=== PATIENT | female | born 1950 | race Caucasian/White ===

== ENCOUNTER 2020-10-02 18:02 | Emergency (ER) | payer SELFPAY ==
[~2020-10-02] VITALS: Ht 165.1 cm; Wt 40.8 kg
[2020-10-02] MEDS ORDERED: DIAZ5 (18:29)
[2020-10-02] MEDS ORDERED: NADO20 PO (18:30)
[2020-10-02] MEDS ORDERED: OXYC5 (18:30)
[2020-10-02 19:13] LABS: BASOPHILS ABSOLUTE AUTO 0.04 K/mm3 (0.00-0.23); BASOPHILS PERCENT AUTO 0 % (0-2); EOSINOPHILS ABSOLUTE AUTO 0.14 K/mm3 (0.00-0.68); EOSINOPHILS PERCENT AUTO 1 % (0-6); Hematocrit 29.5 % (33.0-51.0); IMMATURE GRAN ABSOLUTE AUTO 0.02 K/mm3 (0.00-0.10); IMMATURE GRAN PERCENT AUTO 0 % (0-1); LYMPHOCYTES ABSOLUTE AUTO 2.32 K/mm3 (0.84-5.20); LYMPHOCYTES PERCENT AUTO 24 % (21-46); MONOCYTES ABSOLUTE AUTO 0.89 K/mm3 (0.16-1.47); MONOCYTES PERCENT AUTO 9 % (4-13); Mean Corpuscular HGB Conc 30.5 g/dL (31.5-36.5); Mean Corpuscular Volume 92 fL (80-100); Mean Platelet Volume 9.6 fL (9.1-12.4); NEUTROPHILS ABSOLUTE AUTO 6.43 K/mm3 (1.96-9.15); NEUTROPHILS PERCENT AUTO 65 % (41-73); Platelet Count 310 K/mm3 (150-400); RDW Coefficient Variation 15.1 % (11.7-14.2); RDW Standard Deviation 50.5 fL (35.1-46.3); Red Blood Cell Count 3.22 M/mm3 (3.80-5.20); White Blood Cell Count 9.84 K/mm3 (4.00-11.30)
[2020-10-02 19:29] LABS: Anion Gap 3 mmol/L (6-16); Blood Urea Nitrogen 13 mg/dL (8-24); Bun/Creatinine Ratio 16.1 (12.0-20.0); CO2, Blood 28 mmol/L (21-32); Calcium, Blood 8.5 mg/dL (8.5-10.1); Chloride, Blood 108 mmol/L (98-108); Creatinine, Blood 0.81 mg/dL (0.40-1.00); Glomerular Filtration Rate >60 (60-); Glucose, Blood 108 mg/dL (70-99); Potassium, Blood 3.7 mmol/L (3.5-5.5); Sodium, Blood 139 mmol/L (136-145); Troponin I <0.015 ng/mL (0.000-0.040)
== END 2020-10-02 20:22 | disposition home or self-care (01) ==
LOC: ER 18:02
PROVIDERS: Student in an Organized Health Care Education/Training Program
DX: F11.90 Opioid use, unspecified, uncomplicated (principal); Z79.899 Other long term (current) drug therapy
CPT/HCPCS: 80048; 82947; 84484; 85025; 93005; 93010; 99284-25

== ENCOUNTER 2022-03-04 16:17 | Inpatient (IN) | payer MEDICARE ==
[~2022-03-04] VITALS: Ht 157.5 cm; Wt 40.7 kg
[~2022-03-04 16:17] MED LIST: DIAZ5; NADO20 PO; OXYC5
[2022-03-04 16:51] LABS: BASOPHILS ABSOLUTE AUTO 0.03 K/mm3 (0.00-0.23); BASOPHILS PERCENT AUTO 0 % (0-2); EOSINOPHILS PERCENT AUTO 0 % (0-6); Hematocrit 33.6 % (33.0-51.0); Hemoglobin 9.5 g/dL (11.5-16.0); IMMATURE GRAN ABSOLUTE AUTO 0.13 K/mm3 (0.00-0.10); IMMATURE GRAN PERCENT AUTO 1 % (0-1); LYMPHOCYTES ABSOLUTE AUTO 0.72 K/mm3 (0.84-5.20); LYMPHOCYTES PERCENT AUTO 5 % (21-46); MONOCYTES ABSOLUTE AUTO 0.62 K/mm3 (0.16-1.47); MONOCYTES PERCENT AUTO 4 % (4-13); Mean Corpuscular HGB 20.7 pg (26.0-34.0); Mean Corpuscular HGB Conc 28.3 g/dL (31.5-36.5); Mean Corpuscular Volume 73 fL (80-100); Mean Platelet Volume 9.3 fL (9.1-12.4); NEUTROPHILS ABSOLUTE AUTO 13.05 K/mm3 (1.96-9.15); NEUTROPHILS PERCENT AUTO 90 % (41-73); Platelet Count 642 K/mm3 (150-400); RDW Coefficient Variation 18.6 % (11.7-14.2); RDW Standard Deviation 48.3 fL (35.1-46.3); Red Blood Cell Count 4.58 M/mm3 (3.80-5.20); White Blood Cell Count 14.55 K/mm3 (4.00-11.30)
[2022-03-04 17:13] LABS: PCO2 Arterial 37.9 mmHg (35-45); PO2 Arterial 308 mmHg (80-100); pH Blood Arterial 7.44 (7.35-7.45)
[2022-03-04 17:25] LABS: Albumin, Blood 2.2 g/dL (3.4-5.0); Albumin/Globulin Ratio 0.4 (0.8-1.8); Bilirubin, Total 0.4 mg/dL (0.1-1.0); Bun/Creatinine Ratio 42.6 (12.0-20.0); Creatinine, Blood 1.08 mg/dL (0.40-1.00); Globulin, Blood 5.4 g/dL (2.2-4.0); Potassium, Blood 4.6 mmol/L (3.5-5.5); Total Protein, Blood 7.6 g/dL (6.4-8.2)
[2022-03-04 18:19] LABS: Influenza A, PCR NEGATIVE (NEGATIVE); Influenza B, PCR NEGATIVE (NEGATIVE); Resp Syncytial Virus, PCR NEGATIVE (NEGATIVE); SARS-Cov-2 (COVID-19) PCR, MMC NEGATIVE (NEGATIVE)
[2022-03-04 19:08] LABS: BASOPHILS ABSOLUTE AUTO 0.01 K/mm3 (0.00-0.23); BASOPHILS PERCENT AUTO 0 % (0-2); EOSINOPHILS PERCENT AUTO 0 % (0-6); Hematocrit 24.7 % (33.0-51.0); Hemoglobin 7.1 g/dL (11.5-16.0); IMMATURE GRAN ABSOLUTE AUTO 0.07 K/mm3 (0.00-0.10); IMMATURE GRAN PERCENT AUTO 1 % (0-1); LYMPHOCYTES ABSOLUTE AUTO 0.15 K/mm3 (0.84-5.20); LYMPHOCYTES PERCENT AUTO 2 % (21-46); MONOCYTES ABSOLUTE AUTO 0.39 K/mm3 (0.16-1.47); MONOCYTES PERCENT AUTO 5 % (4-13); Mean Corpuscular HGB 20.9 pg (26.0-34.0); Mean Corpuscular HGB Conc 28.7 g/dL (31.5-36.5); Mean Corpuscular Volume 73 fL (80-100); Mean Platelet Volume 9.3 fL (9.1-12.4); NEUTROPHILS ABSOLUTE AUTO 7.39 K/mm3 (1.96-9.15); NEUTROPHILS PERCENT AUTO 92 % (41-73); Platelet Count 320 K/mm3 (150-400); RDW Coefficient Variation 18.2 % (11.7-14.2); RDW Standard Deviation 47.9 fL (35.1-46.3); Red Blood Cell Count 3.39 M/mm3 (3.80-5.20); White Blood Cell Count 8.01 K/mm3 (4.00-11.30)
[2022-03-04 19:28] LABS: Albumin, Blood 1.8 g/dL (3.4-5.0); Albumin/Globulin Ratio 0.4 (0.8-1.8); Bilirubin, Total 0.3 mg/dL (0.1-1.0); Bun/Creatinine Ratio 52.3 (12.0-20.0); Calcium, Blood 8.4 mg/dL (8.5-10.1); Creatinine, Blood 1.07 mg/dL (0.40-1.00); Globulin, Blood 4.3 g/dL (2.2-4.0); Potassium, Blood 3.7 mmol/L (3.5-5.5); Total Protein, Blood 6.1 g/dL (6.4-8.2)
[2022-03-04 19:36] LABS: Source, Urine Clean Catch
[2022-03-04 19:41] LABS: Appearance, Urine Clear (Clear); Bilirubin, Urine Neg (Neg); Blood, Urine 1+ (Neg); Color, Urine Yellow (P-Yellow); Glucose Qualitative, Urine 1+ (Neg); Ketones, Urine Neg (Neg); Leukocyte Esterase, Urine Neg (Neg); Nitrite, Urine Neg (Neg); Protein, Urine 2+ (Neg); Urobilinogen, Urine NORM (Normal)
[2022-03-04 20:02] LABS: White Blood Cells, Urine 0-2 /hpf (0-5)
[2022-03-04 20:03] LABS: Amorphous Light (0-Heavy); Bacteria Few /hpf; Squamous Epithelial Cells Few /hpf (Few)
--- NOTE | 2022-03-04 20:10 | NUR ---
ASSUMED CARE PATIENT ARRIVED INTUBATED ON AC/VC 16/330/5/30% AND 7.5 ETT 23CM @ LIP. PATIENT IS NOT OPENING EYES OR FOLLOWING COMMANDS. MINIMAL SPONTANEOUS MOVEMENT OF ARMS. NO SEDATION ON AT THIS TIME. MAGNESIUM INF FINISHING. SPO2 MID OT HIGH 90'S. BP SOFT, BUT MAPS GREATER THAN 60. TEMP HUNT PATENT AND DRAINING TO GRAVITY. OGT CLAMPED. [address] NO FAMILY AT BEDSIDE. WOUNDS PHOTOGRAPHED AND PLACED IN CHART. REPORT RECEIVED FROM CELESTINE ROWALND.
[2022-03-05 00:52] LABS: BASOPHILS ABSOLUTE AUTO 0.01 K/mm3 (0.00-0.23); BASOPHILS PERCENT AUTO 0 % (0-2); EOSINOPHILS PERCENT AUTO 0 % (0-6); Hematocrit 26.1 % (33.0-51.0); Hemoglobin 7.8 g/dL (11.5-16.0); IMMATURE GRAN ABSOLUTE AUTO 0.06 K/mm3 (0.00-0.10); IMMATURE GRAN PERCENT AUTO 1 % (0-1); LYMPHOCYTES ABSOLUTE AUTO 0.47 K/mm3 (0.84-5.20); LYMPHOCYTES PERCENT AUTO 5 % (21-46); MONOCYTES ABSOLUTE AUTO 0.65 K/mm3 (0.16-1.47); MONOCYTES PERCENT AUTO 6 % (4-13); Mean Corpuscular HGB Conc 29.9 g/dL (31.5-36.5); Mean Corpuscular Volume 70 fL (80-100); Mean Platelet Volume 9.1 fL (9.1-12.4); NEUTROPHILS ABSOLUTE AUTO 8.92 K/mm3 (1.96-9.15); NEUTROPHILS PERCENT AUTO 88 % (41-73); Platelet Count 359 K/mm3 (150-400); RDW Coefficient Variation 18.3 % (11.7-14.2); RDW Standard Deviation 45.3 fL (35.1-46.3); Red Blood Cell Count 3.71 M/mm3 (3.80-5.20); White Blood Cell Count 10.11 K/mm3 (4.00-11.30)
[2022-03-05 01:08] LABS: Source, Urine Foley catheter
[2022-03-05 01:11] LABS: Bilirubin, Urine Neg (Neg); Blood, Urine 3+ (Neg); Glucose Qualitative, Urine Neg (Neg); Ketones, Urine Neg (Neg); Leukocyte Esterase, Urine 2+ (Neg); Nitrite, Urine Neg (Neg); Protein, Urine 1+ (Neg); Urobilinogen, Urine NORM (Normal)
[2022-03-05 01:21] LABS: Appearance, Urine Clear (Clear); Color, Urine Yellow (P-Yellow)
--- NOTE | 2022-03-05 01:26 | NUR ---
NEPHEW UPDATE CALL MADE TO PATIENT'S NEPHEW, BRIGITTE. ALL QUESTIONS ANSWERED AND PHONE NUMBER ADDED TO CHART.
[2022-03-05 01:37] LABS: Bacteria Few /hpf; Squamous Epithelial Cells Rare /hpf (Few)
[2022-03-05 05:09] LABS: PCO2 Arterial 34.9 mmHg (35-45); PO2 Arterial 53.5 mmHg (80-100)
[2022-03-05 05:45] LABS: Albumin, Blood 1.7 g/dL (3.4-5.0); Albumin/Globulin Ratio 0.4 (0.8-1.8); Bilirubin, Total 0.2 mg/dL (0.1-1.0); Calcium, Blood 8.3 mg/dL (8.5-10.1); Creatinine, Blood 1.02 mg/dL (0.40-1.00); Globulin, Blood 4.2 g/dL (2.2-4.0); Phosphorus, Blood 3.3 mg/dL (2.5-4.9); Potassium, Blood 3.3 mmol/L (3.5-5.5); Total Protein, Blood 5.9 g/dL (6.4-8.2)
--- NOTE | 2022-03-05 05:52 | NUR ---
SHIFT SUMMARY PATIENT REMAINS INTUBATED AND SEDATED. PROPOFOL STARTED THIS SHIFT AND TITRATED UP TO 25 MCG/KG/MIN. BP BEGAN TRENDING DOWN TO MAPS IN 50'S SBP 70'S. CALL MADE TO DR. DOAN FOR CENTRAL LINE PLACEMENT AFTER UNSUCCESSFUL ATTEMPTS AT NEW PERIPHERAL LINE PLACEMENT. CENTRAL LINE PLACED TO RT IJ WITH LEVOPHED STARTED AT 4MCG/MIN. MORNING RHYTHM SHOWED NEW T WAVE INVERSION. DR. DOAN UPDATED. ECHO TO BE COMPLETED TODAY AND CHEM PANEL ORDERED PENDING RESULTS. TWO RUNS OF SVT THAT WERE SELF CONVERTED OUT. GOOD URINE OUTPUT FROM HUNT-SEE OUTPUT. VENT FIO2 INCREASED TO 40% AND RATE DECREASED TO 14 D/T ABG SHOWING O2 OF 53. NO OTHER CHANGES DURING SHIFT.
--- NOTE | 2022-03-05 09:55 | NUR ---
PT SATURATIONS READING IN THE LOW 80S. FIO2 INCREASED UP TO 70% WITH LITTLE EFFECT. SEDATION RESTARTED. DR. GUTHRIE CAME TO THE BEDSIDE TO ASSESS PT. PEEP INCREASED TO [address] GUTHRIE. FIO2 INCREASED TO 100%. SPO2 ON THE FOREHEAD READING 86%. ATTEMPTED TO GET READING FROM BOTH HANDS, NOSE AND EARS, BUT FOREHEAD IS GIVING THE BEST WAVEFORM, ALTHOUGH STILL NOT GREAT. SPO2 WILL DROP LOW 80% THEN CYCLE BACK UP SO EQUIPMENT MALFUNCTION IS BEING CONSIDERED. DR. GUTHRIE CONSIDERING ORDERING ABG TO CONFIRM OXYGENATION. LEVOPHED TITRATED OFF MAP 80. WILL MONITOR SEDATION HAS BEEN RESTARTED AND PEEP INCREASED.
--- NOTE | 2022-03-05 12:50 | NUR ---
REASSESSMENT PT REMAINS INTUBATED AND SEDATED. OXYGENATION BETTER NOW WITH PULSE OX BEING READ ON THE NOSE WITH THE ALAR SENSOR. WAVEFORM STILL VARIABLE AT TIMES, BUT FIO2 HAS BEEN TURNED BACK DOWN TO 40%. LUNGS HAVE SOME INSPIRATORY WHEEZES. SMALL AMT OF RED TINGED SECRETIONS. SINUS TACH IN THE LOW 100S. LEVOPHED HAD TO BE TURNED BACK ON FOR HYPOTENSION. WOUNDS UNCHANGED. CL YELLOW URINE IN HUNT. CONTINUING TO MONITOR.
[2022-03-05 13:52] LABS: Percent Saturation 7.9 % (15.0-50.0)
--- NOTE | 2022-03-05 17:05 | NUR ---
SHIFT SUMMARY PT REMAINS INTUBATED AND SEDATED. MEDICATED ONCE FOR ADDITONAL SEDATION WITH FENTANLY PT'S FAMILY WAS HERE AND SAID THAT PT HAS BEEN USING OPIOIDS CHRONICALLY. PT'S NEPHEW SPOKE WITH DR. GUTHRIE AND WAS UPDATED. PT'S NEPHEW STATES THAT PT HAS BEEN IN POOR HEALTH FOR A LONG TIME AND HER HEALTH HAS DECLINED EVEN MORE SINCE HER . LUNGS HAVE AN INSPIRATORY WHEEZE. REMAINS ON 40% FIO2. PEEP TITRATED BACK DOWN TO 5 THROUGHOUT THE SHIFT. SINUS TACH IN THE LOW 100S. STILL REQUIRING LOW DOSE LEVOPHED TO MAINTAIN MAP ABOVE 65. TUBE FEED STARTED AT TRICKLE RATE THIS AFTERNOON AND PT IS TOLERATING SO FAR. HUNT WITH GOOD OUTPUT THIS MORNING AFTER LASIX, BUT RATE HAS DECREASED OVER THE AFTERNOON. CONTINUING TO MONITOR.
[2022-03-06 03:54] LABS: BASOPHILS ABSOLUTE AUTO 0.01 K/mm3 (0.00-0.23); BASOPHILS PERCENT AUTO 0 % (0-2); EOSINOPHILS ABSOLUTE AUTO 0.01 K/mm3 (0.00-0.68); EOSINOPHILS PERCENT AUTO 0 % (0-6); Hematocrit 24.6 % (33.0-51.0); Hemoglobin 7.5 g/dL (11.5-16.0); IMMATURE GRAN ABSOLUTE AUTO 0.06 K/mm3 (0.00-0.10); IMMATURE GRAN PERCENT AUTO 0 % (0-1); LYMPHOCYTES ABSOLUTE AUTO 0.47 K/mm3 (0.84-5.20); LYMPHOCYTES PERCENT AUTO 3 % (21-46); MONOCYTES ABSOLUTE AUTO 0.68 K/mm3 (0.16-1.47); MONOCYTES PERCENT AUTO 5 % (4-13); Mean Corpuscular HGB 21.4 pg (26.0-34.0); Mean Corpuscular HGB Conc 30.5 g/dL (31.5-36.5); Mean Corpuscular Volume 70 fL (80-100); NEUTROPHILS ABSOLUTE AUTO 12.41 K/mm3 (1.96-9.15); NEUTROPHILS PERCENT AUTO 91 % (41-73); Platelet Count 344 K/mm3 (150-400); RDW Coefficient Variation 18.7 % (11.7-14.2); RDW Standard Deviation 46.4 fL (35.1-46.3); White Blood Cell Count 13.64 K/mm3 (4.00-11.30)
[2022-03-06 04:08] LABS: Bun/Creatinine Ratio 47.6 (12.0-20.0); Calcium, Blood 8.1 mg/dL (8.5-10.1); Creatinine, Blood 1.05 mg/dL (0.40-1.00); Magnesium, Blood 1.9 mg/dL (1.6-2.4); Phosphorus, Blood 3.2 mg/dL (2.5-4.9); Potassium, Blood 3.4 mmol/L (3.5-5.5)
--- NOTE | 2022-03-06 04:35 | NUR ---
Shift summary: Pt had uneventful night, remains intubated and sedated. Spoke with Sergio (nephew) at the beginning of shift and stated that the daughter, Cece, would like an update from the doctor at some point today (03/06/22). Neuro: Pt is sedated with propofol at 20mcg/kg/min and is still able to open eyes to verbal command and follow simple commands. Extremities are still weak. Cardiac: ST with HR in low 100s. Norepi drip currently at 1mcg/min, MAPs >65. Afebrile. BLE 2+ edema remains unchanged. Resp: Lung sounds - coarse vs. clear at times. 7.5 ETT 21 cm at the gums. AC/VC 14/300/5/45% GI/: OGT infusing Vital HP TF at goal rate of 10ml/hr with a H2O flush of 30ml Q4 hr. Lopez draining to gravity with dilute yellow urine. Total output was 690ml. No BM overnight Lines: [facility] central line WNL.
[2022-03-06 05:08] LABS: PCO2 Arterial 37.6 mmHg (35-45); PO2 Arterial 65.9 mmHg (80-100); pH Blood Arterial 7.45 (7.35-7.45)
--- NOTE | 2022-03-06 13:03 | NUR ---
REASSESSMENT PT REMAINS INTUBATED AND SEDATED. SEDATION INCREASED THIS MORNING PT WAS OPENING HER EYES, GRIMACING AND PULLING ON THE RESTRAINTS. PT HAS APPEARED MORE COMFORTABLE SINCE. LEVOPHED WAS TITRATED OFF, BUT HAD TO BE RESTARTED FOR MAP LESS THAN 65. SINUS TACH IN THE LOW 100S. LUNGS ARE CLEAR THIS AFTERNOON. MINIMAL SPUTUM PRODUCTION. TOLERATING TUBE FEED SO FAR. FREE WATER FLUSH INCREASED PER DR. MCKINNEY. HUNT WITH CLEAR YELLOW URINE. PT'S NEPHEW UPDATED BY NURSING STAFF. DR. DEL TORO ATTEMPTED TO CALL PT'S SISTER. PT'S NEPHEW TO INFORM PT'S BALA OF PHONE APPT WITH DR. DEL TORO AT 1400.
--- NOTE | 2022-03-06 16:53 | NUR ---
SHIFT SUMMARY PT REMAINS INTUBATED AND SEDATED. DR. DEL TORO SPOKE WITH FELIPA, PT'S SISTER AND RECEIVED CONSENT FOR THORACENTESIS AND NANDO. R THORACENTESIS PERFORMED AT THE BEDSIDE BY DR. DEL TORO WITH 1700ML OF YELLOW FLUID REMOVED. CHEST XR COMPLETED AFTER THORACENTESIS SHOWED A PNEUMOTHORAX SO CHEST TUBE PLACED TO R LUNG. AIR LEAK PRESENT IN THE CHAMBER, GOOD FLUCTUATION. XRAY POST CHEST XRAY SHOWS FLUID ACCUMALATION AT THE R BASE OF THE R LUNG WITH CHEST TUBE FURTHER TOWARD THE L BASE OF THE R LUNG. PT TURNED FAR ONTO HER L SIDE PER DR. DEL TORO'S REQUEST AND CHEST TUBE DRAINED SMALL AMT OF YELLOW FLUID. PT'S SPO2 REMAINED 91-94% THROUGHOUT BOTH PROCEDURES. FENTANYL GIVEN BEFORE THORACENTESIS AND PROPOFOL ICNREASED FOR PROCEDURE. LEVOPHED HAD TO BE INCREASED WELL TO KEEP MAP ABOVE 65. LUNGS CLEAR. SINUS TACH WITH RATE RIGHT AROUND 100. TOLERATING TUBE FEED. HUNT WITH CL YELLOW URINE. DR. DEL TORO SPOKE WITH PT'S SISTER FELIPA AFTER PROCEDURE WELL.
[2022-03-06 16:55] LABS: Automated BF RBC Count 0.002 M/mm3 (0-0); Automated BF WBC Count 0.322 K/mm3 (0-999)
[2022-03-06 17:01] LABS: Body Fluid WBC Count 322 /mm3 (0-999); RBC Count, Body Fluid 2000 /mm3 (0-0)
--- NOTE | 2022-03-06 17:07 | NUR ---
Request by ICU staff to consult on this pt. However, after talking with beside RN Mary Beth today, decide to hold off for now, as both Mary Beth and Dr. Magallanes have been in close contact with pt's nephew CELESTINE Jaffe today. Daniela's family have deferred to Al[facility] for now as point of contact. Palliative care will remain available.
[2022-03-06 17:16] LABS: Albumin, Body Fluid 1.6 g/dL
[2022-03-06 17:17] LABS: Glucose, Body Fluid 87 mg/dL; Lactate Dehydrogenase, Body Fl 209 U/L; Protein, Body Fluid 4.1 g/dL; Triglycerides, Body Fluid 18 mg/dL
[2022-03-06 17:28] LABS: pH, Body Fluid 8.2
[2022-03-06 17:34] LABS: Color, Body Fluid Yellow (None-Yellow); Total Cell Count, Body Fluid 100
[2022-03-07 04:12] LABS: BASOPHILS ABSOLUTE AUTO 0.01 K/mm3 (0.00-0.23); BASOPHILS PERCENT AUTO 0 % (0-2); EOSINOPHILS ABSOLUTE AUTO 0.01 K/mm3 (0.00-0.68); EOSINOPHILS PERCENT AUTO 0 % (0-6); Hematocrit 25.4 % (33.0-51.0); Hemoglobin 7.6 g/dL (11.5-16.0); IMMATURE GRAN ABSOLUTE AUTO 0.06 K/mm3 (0.00-0.10); IMMATURE GRAN PERCENT AUTO 1 % (0-1); LYMPHOCYTES ABSOLUTE AUTO 0.47 K/mm3 (0.84-5.20); LYMPHOCYTES PERCENT AUTO 4 % (21-46); MONOCYTES PERCENT AUTO 5 % (4-13); Mean Corpuscular HGB 21.1 pg (26.0-34.0); Mean Corpuscular HGB Conc 29.9 g/dL (31.5-36.5); Mean Corpuscular Volume 71 fL (80-100); Mean Platelet Volume 9.3 fL (9.1-12.4); NEUTROPHILS ABSOLUTE AUTO 11.47 K/mm3 (1.96-9.15); NEUTROPHILS PERCENT AUTO 91 % (41-73); Platelet Count 364 K/mm3 (150-400); RDW Standard Deviation 47.3 fL (35.1-46.3); White Blood Cell Count 12.62 K/mm3 (4.00-11.30)
[2022-03-07 04:32] LABS: Bun/Creatinine Ratio 49.5 (12.0-20.0); Calcium, Blood 7.8 mg/dL (8.5-10.1); Creatinine, Blood 1.05 mg/dL (0.40-1.00); Magnesium, Blood 1.8 mg/dL (1.6-2.4); Potassium, Blood 3.2 mmol/L (3.5-5.5)
--- NOTE | 2022-03-07 06:11 | NUR ---
Shift summary: Pt had uneventful night, remains intubated and sedated. Plan for NANDO today. Cece (daughter) would still like to speak to doctor today 03/07/22. Neuro: Pt is sedated with propofol at 35mcg/kg/min and only able to follow commands when sedation is paused. Extremities are still extremely weak. Cardiac: SR with HR in 90s. Norepi drip currently at 4mcg/min, MAPs >65. Afebrile. BLE 2+ edema remains unchanged. Resp: Lung sounds - clear to RUL and Left side. RLL crackles. 7.5 ETT 21 cm at the gums. AC/VC 14/300/5/30% GI/: OGT infusing Vital HP TF at goal rate of 10ml/hr with a H2O flush of 200ml Q6 hr. Lopez draining to gravity with dilute yellow urine. Total output was 800 ml. Still no BM overnight
[2022-03-07 09:33] LABS: Vancomycin, Random 8.3 ug/mL
--- NOTE | 2022-03-07 09:45 | NUR ---
0800 ASSUMED CARE PATIENT IS INTUBATED AND SEDATED ON PROPOFOL 35MCG GOING INTO LEFT IJ QUAD LUMEN CENTRAL LINE. SHE IS ALSO ON LEVOPHED AT 4MCG, KEEPING MAP GREATER THAN 65. PATIENT IS WRIST RESTRAINTS, WERE REMOVED DURING BATH AND ASSESSMENT. SHE DID REACH TO TUBE WHEN SEDATION LIGHTENED. PATIENT IS WEAK HOWEVER MOVING ALL EXTREMETIES. PATIENT HAS A CHEST TUBE TO RIGHT CHEST WALL WITH -20CM NEG. PRESSURE TO ATRIUM AND YELLOW FLUID OUT FROM CHEST TUBE. PATIENT HAS A 16 FR HUNT TEMP PROBE IN PLACE WITH SCANT URINE OUT. PATIENT HAS WARM BUT DRY AND POOR TURGOR TO HER SKIN. SHE HAS A VENTILATOR 7.5 ETT [address] AND FIO2 30% OXYGENATION AT 99% HOWEVER. LUNGS ARE CLEAR BUT COURSE ON RIGHT MID AND LOWER LOBES. PATIENT HAS RECEEDING GUM LINE AND POOR DENTAL CARE. SKIN HAS BRUISES THROUGHOUT AND EDEMA 2+ TO HANDS AND DEPENEDENT EDEMA TO LE BILAT. WOUND TO COCCYX AND PRESSURE DRESSING IN PLACE AND SKIN SEPERATING TO LEFT PINKY TOE GAUZE APPLIED. WOUNDS TO LEGS BILAT GAUZE ALSO APPLIED BY ASSOCIATE PROFESSOR PLANT PATHOLOGY, SEE PICTURES. CENTRAL LINE DRESSING CHANGED THIS AM. CHLORHEXIDINE BATH GIVEN THIS AM AND GOOD KIMBERLY CARE AND HUNT CARE COMPLETED THIS AM. WILL CONTINUE CARE DIRECTED.
--- NOTE | 2022-03-07 15:52 | NUR ---
1545: PT TIRED TO PULL AT ETT. SEDATION OFF PER DR DEL TORO FOR 1 HR AND PT WHO IS STILL RESTRAINED WAS ABLE TO REACH TO ETT AND TRY AND PULL AT TUBES AROUND FACE. SHE WAS UNSUCCESSFUL AND RT AND RN WERE ABLE TO RESET THE ETT TO 21CM. DR DEL TORO AT BEDSIDE AND SAW THE ENTIRE ACTIVITY. PT NOW RESTARTED ON PROPOFOL AT 25MCG. ORAL CARE DONE, LOTS OF DRY SECRETIONS WERE CLEANED OFF TONGUE AND GUM LINE. OXYGENATION GOOD NEVER BELOW 96%.
--- NOTE | 2022-03-07 18:33 | NUR ---
END OF SHIFT 1800 PATIENT SEDATED ON PROPOFOL AT THIS TIME. SHE DID HAVE NO SEDATION FOR A TIME HOWEVER SHE BECAME VERY RESTLESS AND TRIED TO PULL HER ETT OUT. SHE IS NOW AT A RASS -1 ON PROPOFOL AT 25MCG/KG/HR. PATIENT ON 4 MCG OF LEVOPHED ALL DAY. URINE OUTPUT PICKED UP S/P CT SCAN OF CHEST TODAY. DR DEL TORO SAW NODULES IS BOTH SIDES LEFT AND RIGHT LUNGS.. SEE HIS REPORT... FAMILY/ DAUGHTER IN [place] AND SISTER HERE IN [place] WERE INFORMED OF THE FINDINGS. DAUGHTER AND SISTER WOULD LIKE ONE OF THEM TO BE PRESENT BEFORE DOCTOR INFORMS THE PATIENT OF THE FINDINGS. SISTER Jeffry PRESENT AT BEDSIDE THIS EVENING. REPORT TO BE GIVEN TO CATTLE BROKER TO RESUME CARE.
[2022-03-08 04:51] LABS: BASOPHILS ABSOLUTE AUTO 0.02 K/mm3 (0.00-0.23); BASOPHILS PERCENT AUTO 0 % (0-2); EOSINOPHILS ABSOLUTE AUTO 0.02 K/mm3 (0.00-0.68); EOSINOPHILS PERCENT AUTO 0 % (0-6); Hemoglobin 7.6 g/dL (11.5-16.0); IMMATURE GRAN ABSOLUTE AUTO 0.06 K/mm3 (0.00-0.10); IMMATURE GRAN PERCENT AUTO 1 % (0-1); LYMPHOCYTES PERCENT AUTO 5 % (21-46); MONOCYTES ABSOLUTE AUTO 0.65 K/mm3 (0.16-1.47); MONOCYTES PERCENT AUTO 5 % (4-13); Mean Corpuscular HGB 20.7 pg (26.0-34.0); Mean Corpuscular HGB Conc 29.2 g/dL (31.5-36.5); Mean Corpuscular Volume 71 fL (80-100); Mean Platelet Volume 9.5 fL (9.1-12.4); NEUTROPHILS ABSOLUTE AUTO 11.77 K/mm3 (1.96-9.15); NEUTROPHILS PERCENT AUTO 89 % (41-73); Platelet Count 331 K/mm3 (150-400); RDW Coefficient Variation 19.2 % (11.7-14.2); RDW Standard Deviation 47.1 fL (35.1-46.3); Red Blood Cell Count 3.67 M/mm3 (3.80-5.20); White Blood Cell Count 13.22 K/mm3 (4.00-11.30)
[2022-03-08 05:14] LABS: Magnesium, Blood 1.6 mg/dL (1.6-2.4)
[2022-03-08 05:15] LABS: Anion Gap 8 mmol/L (6-16); Blood Urea Nitrogen 51 mg/dL (8-24); Bun/Creatinine Ratio 61.2 (12.0-20.0); CO2, Blood 25 mmol/L (21-32); Calcium, Blood 7.8 mg/dL (8.5-10.1); Chloride, Blood 112 mmol/L (98-108); Creatinine, Blood 0.83 mg/dL (0.40-1.00); Glomerular Filtration Rate 75 (60-); Glucose, Blood 99 mg/dL (70-99); Phosphorus, Blood 2.6 mg/dL (2.5-4.9); Potassium, Blood 3.6 mmol/L (3.5-5.5); Sodium, Blood 145 mmol/L (136-145); Vancomycin, Random 14.4 ug/mL
--- NOTE | 2022-03-08 06:15 | NUR ---
SHIFT SUMMARY: this author assumed patient cares from . Patient had uneventful night with no acute events. Remains intubated and mechanically ventilated. NEURO: sedated comfortably on Propofol. No s/s pain or discomfort. Afebrile. CARDS: SR, rate in low 90s all shift. Remains on Levophed gtt. Dependent edema noted to be pitting in RUE. Elevated extremity and loosened soft restraints. RESP: LS clear/diminished. Minimal secretion burden. AC/VC 14/300/5/30%. ETT 7.5, 21cm at gums. SpO2 >90%. R-sided chest tube outputting serosanguineous fluid. MSK/INTEG: very weak in all extremities. Very frail. Bath done. See EHR for multiple ulcers on BLE, other wounds. No new abnormalities noted. GI/: no BM this shift. Lopez is patient and draining to gravity. TF at goal, 10ml/hr + 200ml H2O flush q6hr.
--- NOTE | 2022-03-08 07:29 | NUR ---
Assumed care for pt at 0700. She is currently intubated w/ ETT @ 23 cm at teeth, vent @ 30% Fio2, w/ 5 PEEP and @ Vt 300. Chest tube in right chest, attached to an atrium that is set to -20. Lopez catheter remains in place. Quadruple lumen remains in R IJ w/ Propofol gtt @ 35 mcg/kg/min and Levophed gtt @ 5 mcg/min. OG tube in place w/ Vital HP tube feed @ goal of 10 ml/hr w/ q6hr flush of 200 ml water.
--- NOTE | 2022-03-08 19:00 | NUR ---
ASSUMPTION OF CARE PT REMAINS INTUBATED WITH VENT SETTINGS AC/VC 14/300/5/30%. PT HAS POSITIONAL CUFF LEAK, RT AWARE. SHE IS RECEIVING LEVOPHED 4MCG/MIN AND PROPOFOL 25MCG/KG/MIN. NEURO: SEDATED WITH PROPOFOL. MINIMAL COUGH/GAG REFLEX. PUPILS 4MM, EQUAL AND REACTIVE TO LIGHT. PT MOVES UPPER EXTREMITIES OCCASIONALLY PULLING AGAINST RESTRAINTS. RESP: CHEST TUBE TO R CHEST. CONNECTED TO -20 SUCTION WITH SEROSANGUANOUS DRAINAGE IN TUBING. DRESSING C/D/I. R LUNG CLEAR/DIM. L LUNG CLEAR, DIMINISHED IN BASE. PT TOLERATING VENT WELL. CARDIAC: SINUS RHTYHM ON MONITOR WITH RATE 90-93. LEVOPHED AT 4MCG/MIN, TITRATED DOWN TO 3MCG/MIN. STRONG RADIAL PULSES, FAINT PEDAL PULSES. CAP REFILL <3SEC. GI: VHP INFUSING VIA DOBOFF AT 15ML/HR WITH GOAL 30ML/HR. 200ML WATER FLUSHES Q4HRS. ABDOMEN SLIGHTLY DISTENDED, FIRM, BOWEL TONES ACTIVE. : HUNT PATENT AND DRAINING PALE YELLOW URINE TO GRAVITY. SKIN: OVERALL FRAGILE, SCATTERED ECCHYMOSIS THROUGHOUT. BILAT LOWER EXTREMITIES WRAPPED WITH KERLIX. RIJ REMAINS IN PLACE. MUSIC PLAYING AND LIGHTS DIMMED.
--- NOTE | 2022-03-08 19:16 | NUR ---
Pt remains intubated w/ ETT @ 21 cm at teeth. Goal rate for tube feed increased to 30 ml/hr, the flush remains 200 ml q6hr. Propofol gtt @ 25 mcg/kg/min and Levophed gtt @ 4 mcg/min at shift change. Chest tube output into the atrium was 230 ml.
--- NOTE | 2022-03-08 22:30 | NUR ---
UPDATE PT'S TV DECREASED TO <200 AND AUDIBLE CUFF LEAK. RT NOTIFIED AND AT BEDSIDE. ETT HOLSTER AND BITE BLOCK REPLACED. ETT REPOSITIONED AND CHEST XRAY DONE. ETT RETRACTED 2CM BY RT PER HOSPITALIST RECOMMENDATION. SECOND CHEST XRAY COMPLETED. POSITIONING APPROVED BY HOSPITALIST. 21CM AT TEETH. VENT SETTINGS REMAIN AC/VC 18/300/5/30%. RR 18-24. SPO2 >95%.
[2022-03-09 04:10] LABS: BASOPHILS ABSOLUTE AUTO 0.01 K/mm3 (0.00-0.23); BASOPHILS PERCENT AUTO 0 % (0-2); EOSINOPHILS ABSOLUTE AUTO 0.02 K/mm3 (0.00-0.68); EOSINOPHILS PERCENT AUTO 0 % (0-6); Hematocrit 25.5 % (33.0-51.0); Hemoglobin 7.6 g/dL (11.5-16.0); IMMATURE GRAN ABSOLUTE AUTO 0.05 K/mm3 (0.00-0.10); IMMATURE GRAN PERCENT AUTO 0 % (0-1); LYMPHOCYTES ABSOLUTE AUTO 0.61 K/mm3 (0.84-5.20); LYMPHOCYTES PERCENT AUTO 5 % (21-46); MONOCYTES ABSOLUTE AUTO 0.57 K/mm3 (0.16-1.47); MONOCYTES PERCENT AUTO 5 % (4-13); Mean Corpuscular HGB 20.9 pg (26.0-34.0); Mean Corpuscular HGB Conc 29.8 g/dL (31.5-36.5); Mean Corpuscular Volume 70 fL (80-100); Mean Platelet Volume 9.4 fL (9.1-12.4); NEUTROPHILS ABSOLUTE AUTO 10.44 K/mm3 (1.96-9.15); NEUTROPHILS PERCENT AUTO 89 % (41-73); Platelet Count 268 K/mm3 (150-400); RDW Coefficient Variation 19.2 % (11.7-14.2); RDW Standard Deviation 46.9 fL (35.1-46.3); Red Blood Cell Count 3.63 M/mm3 (3.80-5.20)
[2022-03-09 04:33] LABS: Bun/Creatinine Ratio 62.8 (12.0-20.0); Calcium, Blood 7.8 mg/dL (8.5-10.1); Creatinine, Blood 0.76 mg/dL (0.40-1.00); Magnesium, Blood 1.6 mg/dL (1.6-2.4); Phosphorus, Blood 2.5 mg/dL (2.5-4.9); Potassium, Blood 3.3 mmol/L (3.5-5.5)
--- NOTE | 2022-03-09 05:34 | NUR ---
SHIFT SUMMARY PT REMAINS INTUBATED WITH VENT SETTINGS AC/VC 14/300/5/30%. SHE IS RECEIVING LEVOPHED 5MCG/MIN, PROPOFOL 25MCG/KG/MIN, AND NS TKO. CHEST TUBE REMAINS TO R SIDE WITH 160ML SEROSANGUINEOUS OUTPUT. TRANSPARENT DRESSING C/D/I. TUBE FEEDING INFUSING VIA OGT AT GOAL RATE. HUNT OUTPUT 550ML THIS SHIFT. ORDER RECEIVED FOR KCL AND MAGNESIUM.
--- NOTE | 2022-03-09 07:53 | NUR ---
Assumed care for pt at 0700. Currently intubated w/ ETT at 21 cm at teeth, right chest tube in place, attached to atrium and suction set to -20. Lopez cath remains in place along w/ central line in Left IJ; propofol gtt @ 25 mcg/kg/min, levophed gtt @ 4 mcg/min, replacing K+ w/ 40 mEq gtt and 2 g Mag IV. Vital HP @ 30 ml/hr which is the goal w/ 200 ml water flushes q6hr.
[2022-03-09 08:27] LABS: BASOPHILS ABSOLUTE AUTO 0.01 K/mm3 (0.00-0.23); BASOPHILS PERCENT AUTO 0 % (0-2); EOSINOPHILS ABSOLUTE AUTO 0.02 K/mm3 (0.00-0.68); EOSINOPHILS PERCENT AUTO 0 % (0-6); Hemoglobin 7.5 g/dL (11.5-16.0); IMMATURE GRAN ABSOLUTE AUTO 0.05 K/mm3 (0.00-0.10); IMMATURE GRAN PERCENT AUTO 0 % (0-1); LYMPHOCYTES ABSOLUTE AUTO 0.48 K/mm3 (0.84-5.20); LYMPHOCYTES PERCENT AUTO 4 % (21-46); MONOCYTES PERCENT AUTO 4 % (4-13); Mean Corpuscular HGB 21.1 pg (26.0-34.0); Mean Corpuscular Volume 70 fL (80-100); Mean Platelet Volume 9.2 fL (9.1-12.4); NEUTROPHILS ABSOLUTE AUTO 10.43 K/mm3 (1.96-9.15); NEUTROPHILS PERCENT AUTO 91 % (41-73); Platelet Count 251 K/mm3 (150-400); RDW Coefficient Variation 19.2 % (11.7-14.2); RDW Standard Deviation 46.7 fL (35.1-46.3); Red Blood Cell Count 3.55 M/mm3 (3.80-5.20); White Blood Cell Count 11.49 K/mm3 (4.00-11.30)
[2022-03-09 08:46] LABS: Vancomycin, Trough 12.5 ug/mL (5.0-10.0)
--- NOTE | 2022-03-09 09:31 | NUR ---
Holding Heparin SQ this morning for possible CT biopsy of the lung. Also stopped the tube feed in preparation. Notified RT of possible procedure in next few hours.
[2022-03-09 09:44] LABS: International Normalized Ratio 1.09; Prothrombin Time Results 11.4 Sec (9.7-11.5)
--- NOTE | 2022-03-09 11:02 | NUR ---
Pt taken to CT for her biopsy at 1030. This RN and Ryan RT accompanied pt to CT. Pt remained on vent, Propofol and Levophed. Chest tube was clamped for transport. Sofy WATTS and psych tech assisted in transporting pt.
--- NOTE | 2022-03-09 11:53 | NUR ---
Pt returned to ICU # [address] This RN and Ryan RT remained w/ pt throughout procedure. Pt was proned for the procedure, w/ spot for biopsy at right posterior lung.
--- NOTE | 2022-03-09 14:48 | NUR ---
Hung a new drip set and formula of tube feed, Vital HP. Resumed the goal of 30 ml/hr, ehich the pt tolerated, and 200 ml water flushes q6hr.
--- NOTE | 2022-03-09 19:04 | NUR ---
Pt had a CT biopsy on right posterior lung this morning; pt was proned for procedure. Ended shift on Propofol gtt @ 25 mcg/kg/min and Levophed 6 mcg/min. Tube feed was at goal of 30 ml/hr w/ 200 ml water flush q6hr. Right chest tube remains in place, set to suction. ETT remained at 21 cm at teeth.
[2022-03-10 04:33] LABS: BASOPHILS ABSOLUTE AUTO 0.02 K/mm3 (0.00-0.23); BASOPHILS PERCENT AUTO 0 % (0-2); EOSINOPHILS ABSOLUTE AUTO 0.06 K/mm3 (0.00-0.68); EOSINOPHILS PERCENT AUTO 1 % (0-6); Hematocrit 25.9 % (33.0-51.0); Hemoglobin 7.8 g/dL (11.5-16.0); IMMATURE GRAN ABSOLUTE AUTO 0.06 K/mm3 (0.00-0.10); IMMATURE GRAN PERCENT AUTO 1 % (0-1); LYMPHOCYTES ABSOLUTE AUTO 0.46 K/mm3 (0.84-5.20); LYMPHOCYTES PERCENT AUTO 4 % (21-46); MONOCYTES ABSOLUTE AUTO 0.52 K/mm3 (0.16-1.47); MONOCYTES PERCENT AUTO 5 % (4-13); Mean Corpuscular HGB 21.2 pg (26.0-34.0); Mean Corpuscular HGB Conc 30.1 g/dL (31.5-36.5); Mean Corpuscular Volume 70 fL (80-100); Mean Platelet Volume 9.5 fL (9.1-12.4); NEUTROPHILS ABSOLUTE AUTO 10.38 K/mm3 (1.96-9.15); NEUTROPHILS PERCENT AUTO 90 % (41-73); Platelet Count 232 K/mm3 (150-400); RDW Coefficient Variation 19.2 % (11.7-14.2); RDW Standard Deviation 47.5 fL (35.1-46.3); Red Blood Cell Count 3.68 M/mm3 (3.80-5.20)
[2022-03-10 04:58] LABS: Bun/Creatinine Ratio 71.7 (12.0-20.0); Calcium, Blood 7.7 mg/dL (8.5-10.1); Creatinine, Blood 0.7 mg/dL (0.40-1.00); Potassium, Blood 4.1 mmol/L (3.5-5.5)
--- NOTE | 2022-03-10 06:29 | NUR ---
PATIENT SEDATED ON PROPOFOL GTT, OPENS EYES TO PAIN, DOES NOT FOLLOW COMMANDS, MOVES EXTREMITIES X4. SR AND LEVO GTT INFUSING TO MAINTAIN MAP >65. REMAINS ON VENTILATOR 14/300/5/50% . CHEST TUBE IN PLACE AND DRAINING UNTIL 0600. NO LONGER TIDALING, NO SIGNS OF KINK OR OBSTRUCTION. NO CREPITUS AND SMALL AMOUNT OF DRAINAGE AROUND INSERTION SITE. CHARGE NURSE NOTIFIED. CXR ORDER IN PLACE. PATIENT HAS OG TUBE WITH CONTINUOUS TUBE FEEDS. NO BOWEL MOVEMENT. HUNT IN PLACE AND PATENT.
--- NOTE | 2022-03-10 07:23 | NUR ---
Assumed care for pt at 0700. Pt still intubated w/ ETT @ 21 cm teeth, vent set @ 14/300/60% PEEP 5. Chest tube remains in right chest, there were concerns at report that it was clogged, starting at 0600 but it appears to be working now. Left IJ remains in place w/ Propofol @ 25 mcg/kg/min and Levophed @ 2 mcg/min. Tube feed at goal of 30 ml/hr w/ ordered 200 ml flushes q6hr.
--- NOTE | 2022-03-10 15:24 | NUR ---
Changed the Toco Dry Suction Atrium after the previous one filled to the 2000 ml conrado.
--- NOTE | 2022-03-10 16:15 | NUR ---
Pt was set to Spontaneous on the vent at 14/300/5/35% for roughly 5 hours today. Pt placed back on AC now, settings at 14/300/5/35% Propofol gtt @ 20 mcg/kg/min. Dr. Magallanes advised he would like to repeat the trial again tomorrow, though w/ a lower amount of sedation. Throughout the trial the pt had no purposeful movement, would not track w/ her eyes, nor follow commands.
--- NOTE | 2022-03-10 19:24 | NUR ---
Pt remained intubated on ETT. She was on Spontaneous setting at 20 mcg/kg/min of Propofol gtt during that time. Dr. Magallanes would like to repeat the trial tomorrow w/ decreased sedation. Replaced the Pleur-evac after it filled to 2000 ml. Levophed has been stopped. Pt remains at the goal for tube feeding. She had a large BM this evening and received a bed bath and linen change.
[2022-03-11 04:51] LABS: BASOPHILS ABSOLUTE AUTO 0.01 K/mm3 (0.00-0.23); BASOPHILS PERCENT AUTO 0 % (0-2); EOSINOPHILS ABSOLUTE AUTO 0.01 K/mm3 (0.00-0.68); EOSINOPHILS PERCENT AUTO 0 % (0-6); Hematocrit 25.5 % (33.0-51.0); Hemoglobin 7.7 g/dL (11.5-16.0); IMMATURE GRAN ABSOLUTE AUTO 0.11 K/mm3 (0.00-0.10); IMMATURE GRAN PERCENT AUTO 1 % (0-1); LYMPHOCYTES ABSOLUTE AUTO 0.36 K/mm3 (0.84-5.20); LYMPHOCYTES PERCENT AUTO 3 % (21-46); MONOCYTES ABSOLUTE AUTO 0.68 K/mm3 (0.16-1.47); MONOCYTES PERCENT AUTO 5 % (4-13); Mean Corpuscular HGB 20.8 pg (26.0-34.0); Mean Corpuscular HGB Conc 30.2 g/dL (31.5-36.5); Mean Corpuscular Volume 69 fL (80-100); Mean Platelet Volume 10.2 fL (9.1-12.4); NEUTROPHILS ABSOLUTE AUTO 12.42 K/mm3 (1.96-9.15); NEUTROPHILS PERCENT AUTO 91 % (41-73); Platelet Count 260 K/mm3 (150-400); RDW Coefficient Variation 18.9 % (11.7-14.2); RDW Standard Deviation 45.4 fL (35.1-46.3); White Blood Cell Count 13.59 K/mm3 (4.00-11.30)
[2022-03-11 05:14] LABS: Bun/Creatinine Ratio 78.2 (12.0-20.0); Calcium, Blood 7.7 mg/dL (8.5-10.1); Creatinine, Blood 0.79 mg/dL (0.40-1.00); Phosphorus, Blood 3.1 mg/dL (2.5-4.9); Potassium, Blood 4.3 mmol/L (3.5-5.5)
--- NOTE | 2022-03-11 06:20 | NUR ---
PATIENT ALERT BUT NOT FOLLOWING COMMANDS. MOVING EXTREMITIES X4. BILATERAL SOFT WRIST RESTRAINTS IN PLACE. SR WITH STABLE BLOOD PRESSURE. VENT 14/300/5/50. OGT IN PLACE AND CONTINUOUS TUBE FEEDS RUNNING. HUNT IN PLACE AND PATENT. PROPOFOL GTT INFUSING.
--- NOTE | 2022-03-11 07:15 | NUR ---
CARE OF PT ASSUMED AT 0700. PT ON LIGHT SEDATION PROPOFOL AT 15MCG FOR VENT MARIA LUZ. DR DEL TORO WOULD LIKE PT TO BE PLACED ON SPONT TRIAL LATER TODAY. PT DROWSY, AWAKENS TO VOICE, NODS HEAD NO TO PAIN, BUT LOOKS SOMEWHAT UNCOMFORTABLE WITH CARE. PT LIGHTLY CADD DRAFTER HAND TO COMMAND. VENT: AC/VC+ 14/300/50%/5. CT DRAINING SS FLUID, DRSG C/D/I W/O CREPITUS. ABSENT AIR LEAK.
[2022-03-11 09:06] LABS: Vancomycin, Trough 20.7 ug/mL (5.0-10.0)
--- NOTE | 2022-03-11 14:00 | NUR ---
ASSUMED PT CARE. PT REMAINS INTUBATED AND LIGHTLY SEDATED ON PROPOFOL @ 15 MCG/KG/MIN. PT OPENS EYES TO VOICE. PT NODS "NO" WHEN ASKED IF IN PAIN. PT REACHES FOR ETT WITH LEFT HAND WHEN NOT RESTRAINED, BUT FOLLOWED COMMANDS WHEN ASKED TO LOWER HER HAND. PT GENERALLY WEAK AND VERY CACHECTIC. SCLERAL EDEMA NOTED R>L. ECG SHOWS SR WITH RATE 80-90'S. SBP 110-120'S. RIGHT HAND EDEMATOUS-ELEVATED ON PILLOW. LOWER EXTREMITIES MILDLY EDEMATOUS-BOTH LOWER EXTREMITIES APPEAR WRINKLED. DP PULSES PER DOPPLER-MARKED. ETT 7.5 @ UPPER LIP. VENT: AC/VC 14, 300, PEEP 5, FIO2 45%. LUNGS COARSE TO UPPER LOBES AND DIMINISHED IN THE BASES. SATS>90% ETT SUCTION PRODUCTIVE OF MODERATE AMOUNT OF THICK, JOHNSON SECRETIONS. CHEST TUBE TO RIGHT CHEST WALL PATENT-DRESSING C/D/I. NO NOTED CREPITUS OR AIR LEAK. RIGHT CHEST TUBE DRAINING SERO-SANGUINOUS DRAINAGE WITH SOME CLOTS. ABDOMEN MILDLY DISTENDED. OGTF VHP @ 30 CC/HR TOLERATED WELL. HUNT TO BSD WITH ADEQUATE AMOUNT OF YELLOW URINE TO UROMETER. SKIN PALE AND FRAIL. MEPILEX/FOAM DRESSING TO PRESSURE ULCER ON COCCYX-C/D/I. ANTICIPATE WEANING TRIAL WHEN DR. DEL TORO AVAILABLE AT BEDSIDE.
--- NOTE | 2022-03-11 15:10 | NUR ---
PT PLACED ON PS 10, PEEP 5, FIO2 45%-SATS>90% RR 16-20. TV 350-450. PT REMAINS LIGHTLY SEDATED AND ABLE TO FOLLOW COMMANDS.
--- NOTE | 2022-03-11 18:30 | NUR ---
PT RETURNED TO PREVIOUS SETTINGS ON VENT HAVING APNEIC PERIODS AND TV DROPPING BELOW 300. PT CONTINUES VERY, LIGHTLY, SEDATED ON PROPOFOL @ 15 MCG/KG/MIN. SHE NODS "NO" WHEN ASKED IF IN PAIN.
--- NOTE | 2022-03-11 19:41 | NUR ---
ASSUMED CARE OF PT AT 1900 PT SEDATED. VENT AC/VC 14/300/5/45% NEURO- PT NODS HEAD YES OR NO TO QUESTIONS. CARDIAC- BP AND HR STABLE AND WNL. SWELING NOTED ON RIGHT AND LEFT UPPER EXT. 3+ ON RIGHT HAND, 1+ ON LEFT HAND. RESP- RHONCHI HEARD IN UPPER LOBES. DIMINISHED BASES WITH COURSENESS. CHEST TUBE IN PLACE WITH NO APPARENT ISSUES AT THIS TIME. GI, - NO BM REPORTED FROM DAYSHIFT. FOLLEY DRAINING TO GRAVITY WITH YELLOW URINE. NO VISITORS IN ROOM AT THIS TIME. SEE FULL ASSESSMENT FOR FURTHER INFORMATION.
[2022-03-12 03:40] LABS: Hematocrit 21.8 % (33.0-51.0); Hemoglobin 6.6 g/dL (11.5-16.0); Mean Corpuscular HGB Conc 30.3 g/dL (31.5-36.5); Mean Corpuscular Volume 69 fL (80-100); Mean Platelet Volume 10.3 fL (9.1-12.4); Platelet Count 203 K/mm3 (150-400); RDW Coefficient Variation 19.3 % (11.7-14.2); RDW Standard Deviation 46.4 fL (35.1-46.3); Red Blood Cell Count 3.14 M/mm3 (3.80-5.20); White Blood Cell Count 10.13 K/mm3 (4.00-11.30)
--- NOTE | 2022-03-12 05:26 | NUR ---
END OF SHIFT SUMMARY SEDATED AND INTUBATED. 14/300/5/45% PROPOFOL RUNNING AT 18 MCG/KG/HR. NEURO- PT OPENS EYES TO SOUND AND TRACKS. ANSWERS YES OR NO QUESTIONS BY NODDING HEAD. CARDIAC- HYPOTENSIVE THROUGHOUT THE SHIFT WITH MAPO RIDING AROUND 65. SWELLING APPARENT IN BUE. RIGHT HAND 3+ EDEMA, LEFT HAND 1+. RESP- SPO2 >90%. JOHNSON THICK SPUTUM WHEN SUCTIONED. GI & - HUNT DRAINING TO GRAVITY WITH CLEAR YELLOW URINE. NO BM THIS SHIFT. WILL CONTINUE TO MONITOR UNTIL REPORT GIVEN TO AM RN.
[2022-03-12 05:44] LABS: Bun/Creatinine Ratio 85.2 (12.0-20.0); Calcium, Blood 7.5 mg/dL (8.5-10.1); Creatinine, Blood 0.67 mg/dL (0.40-1.00); Magnesium, Blood 1.7 mg/dL (1.6-2.4); Phosphorus, Blood 2.6 mg/dL (2.5-4.9); Potassium, Blood 3.5 mmol/L (3.5-5.5)
--- NOTE | 2022-03-12 08:00 | NUR ---
PT REMAINS INTUBATED, SEDATED, AND RESTRAINED. PT AWAKE, GRIMACING, PULLING ON RESTRAINTS, REACHING FOR ETT, AND SHAKES HER HEAD "YES" WHEN ASKED IF IN PAIN. PROPOFOL TITRATED UP TO 20 MCG/KG/MIN AND PT MED WITH FENTANYL 50 MCG IVP X 1-SEE EMAR. PUPILS 3 MM AND BRISK. SCLERAL EDEMA CONTINUES R>L. GENERAL WEAKNESS CONTINUES AND PT REMAINS PROFOUNDLY CACHETIC. ECG SHOW SR WITH RATE 80'S. MAP TRENDING 60'S. HGB 6.6 THIS AM. HEPARIN HELD THIS AM. EDEMA IMPROVED THIS AM. RIGHT HAND REMAINS SLIGHTLY SWOLLEN. LUNGS DIMINISHED IN THE BASES. RIGHT CHEST WALL CHEST TUBE TO 20 CM SUCTION-PRODUCTIVE OF SCANT AMOUNT OF SERO/SANG DRAINAGE. INSERTION SITE LEAKING SEROUS FLUID. CONNECTIONS SECURED. ETT SUCTION PRODUCTIVE OF SMALL AMOUNT OF THICK, JOHNSON SECRETIONS. ORAL CARE PRODUCTIVE OF COPIOUS, THICK, JOHNSON SECRETIONS. OGTF VHP @ GOAL OF 30 CC/HR. HUNT TO BSD WITH ADEQUATE AMOUNT OF CLEAR, YELLOW URINE TO UROMETER. SKIN PALE AND FRAIL/ LEFT PINKY TOE APPEARS NECROTIC AT THE TIP. MEPILEX FOAM DRESSING C/D/I TO COCCYX. ADDITIONAL FOAM DRESSINGS PLACED TO BONY PROMINENCE PREVENTATIVE MEASURE. ANTICIPATE POSSIBLE PS TRIAL LATER THIS AM WHEN DR. GUTHRIE DOES ROUNDS.
--- NOTE | 2022-03-12 09:15 | NUR ---
DR. GUTHRIE IN TO SEE PT. FULL UPDATED GIVEN. PROPOFOL DRIP ON SB.
--- NOTE | 2022-03-12 09:25 | NUR ---
PT AWAKE, ALERT, FOLLOWING COMMANDS, BUT PULLING ON RESTRAINTS. PLACED ON PS 10.
--- NOTE | 2022-03-12 09:35 | NUR ---
PT VERY RESTLESS AND AGITATED-PULLING ON RESTRAINTS AND REACHING TOWARDS ETT. PROPOFOL DRIP RESUMED @ 10 MCG/KG/MIN. TYPE AND SCREEN DRAWN AND SENT TO LAB.
--- NOTE | 2022-03-12 10:48 | NUR ---
PT EXTUBATED TO 4L N/C BY RT AT 1045, ORDERS PER DR GUTHRIE. PT FOLLOWING COMMANDS. RESTRAINTS DC'D.
--- NOTE | 2022-03-12 11:30 | NUR ---
PT A&OX4. PT DENIES PAIN OR SOB. LUNGS DIMINISHED IN THE BASES. SATS>90% ON 6 LITERS NASAL CANULA. PT COUGH IS VERY WEAK. EXTREMITIES VERY COOL TO TOUCH-WARM BLANKETS PROVIDED. IT IS DIFFICULT TO GET A GOOD PLETH ON SPO2. 1 UNIT PRBC'S INFUSING. NO ACUTE DISTRESS NOTED.
--- NOTE | 2022-03-12 14:00 | NUR ---
PT SITTING UP IN BED WATCHING TV WITHOUT NOTED DISTRESS. PT SPEAKING IN A WHISPER AND MAKING HER NEEDS KNOWN. COUGH EFFORT IMPROVING. ORAL CARE DONE AND ORAL SUCTION PRODUCTIVE OF MODERATE AMOUNT OF THICK, JOHNSON SPUTUM. VSS. SATS>90% ON 6 LITERS NASAL CANULA. [facility], PT BOOSTED IN BED. HIPS AND HEELS FLOATED. UPPER EXTREMITIES ELEVATED ON PILLOWS.
--- NOTE | 2022-03-12 16:00 | NUR ---
PT REMAINS A&OX4. DENIES PAIN OR SOB. VSS. LUNGS DIMINISHED. COUGH EFFORT CONTINUES TO IMPROVE. MAINTAINS SATS>90% ON 5 LITERS NASAL CANULA. PT WATCHING TV WITHOUT NOTED DISTRESS. CALL LIGHT WITHIN REACH.
--- NOTE | 2022-03-12 17:30 | NUR ---
PT SISTER AT BEDSIDE. UPDATE GIVEN. PT SISTER APPEARS VERY ANXIOUS. DESPITE PT BEING A&OX4-PT SISTER REQUESTING TO WAIT UNTIL TOMORROW TO DISCUSS PROGNOSIS/POSSIBLE CANCER DIAGNOSIS. JOSÉ FROM [facility] CONSULTED. PT HAS NOT BEEN INFORMED OF POSSIBLE CANCER DIAGNOSIS, BUT RN HAS DISCUSSED RESESUSCITATION BRIEFLY WITH PT AND HER SISTER. PT SISTER VERY TEARFUL AND SPEAKING FOR PT. PT STATES "YES" WHEN ASKED IF SHE UNDERSTANDS THE DISCUSSION AT HAND.
--- NOTE | 2022-03-12 18:31 | NUR ---
Pt was successfully extubated today. She is breathing without difficulty on 02 via n/c. Cough remains weak, but pt is able to speak, voice is almost a whisper. Pt's sister was at bedside this evening, and she has requested we wait until tomorrow to tell pt about the nodules in her lungs, as she will be able to stay longer with pt tomorrow. Pt is alert, with minor confusion occasionally. Plan to visit with pt again tomorrow after her ST eval.
[2022-03-13 03:34] LABS: BASOPHILS ABSOLUTE AUTO 0.01 K/mm3 (0.00-0.23); BASOPHILS PERCENT AUTO 0 % (0-2); EOSINOPHILS PERCENT AUTO 0 % (0-6); Hematocrit 30.6 % (33.0-51.0); Hemoglobin 9.7 g/dL (11.5-16.0); IMMATURE GRAN ABSOLUTE AUTO 0.03 K/mm3 (0.00-0.10); IMMATURE GRAN PERCENT AUTO 0 % (0-1); LYMPHOCYTES ABSOLUTE AUTO 0.25 K/mm3 (0.84-5.20); LYMPHOCYTES PERCENT AUTO 2 % (21-46); MONOCYTES ABSOLUTE AUTO 0.43 K/mm3 (0.16-1.47); MONOCYTES PERCENT AUTO 4 % (4-13); Mean Corpuscular HGB 23.2 pg (26.0-34.0); Mean Corpuscular HGB Conc 31.7 g/dL (31.5-36.5); Mean Corpuscular Volume 73 fL (80-100); Mean Platelet Volume 9.8 fL (9.1-12.4); NEUTROPHILS PERCENT AUTO 93 % (41-73); Platelet Count 237 K/mm3 (150-400); RDW Coefficient Variation 21.6 % (11.7-14.2); Red Blood Cell Count 4.19 M/mm3 (3.80-5.20); White Blood Cell Count 10.92 K/mm3 (4.00-11.30)
[2022-03-13 04:00] LABS: Bun/Creatinine Ratio 111.7 (12.0-20.0); Creatinine, Blood 0.56 mg/dL (0.40-1.00); Magnesium, Blood 1.6 mg/dL (1.6-2.4); Phosphorus, Blood 3.3 mg/dL (2.5-4.9); Potassium, Blood 3.5 mmol/L (3.5-5.5)
--- NOTE | 2022-03-13 04:36 | NUR ---
UPDATE: PT SPO2 DECREASED TO 79%, RR REMAINED BETWEEN 15-20. PT DOES NOT APPEAR IN RESP DISTRESS, HOWEVER SPO2 HAS A GOOD WAVEFORM AT TIMES. PT PLACED ON 15L OF 02 VIA HIGH-FLOW NASAL CANNULA. AT BEDSIDE, ORDERS TO OBTAIN ABG, AND CHEST X-RAY GIVEN. PT DENIES ANY SHORTNESS OF BREATH AT THIS TIME. CHEST TUBE SEAL VERIFIED, NO AIR LEAK NOTED.
--- NOTE | 2022-03-13 05:08 | NUR ---
SHIFT SUMMARY: SEE PREVIOUS NOTES. PT CONTINUES TO BE ALERT AND ORIENTED TO SELF, FOLLOWING COMMANDS. PT NEEDS ASSISTANCE TO COMMUNICATE NEEDS. IS ABLE TO ANSWER YES/NO QUESTIONS. PHONATION IS VERY WEAK. PT HAS DENIED PAIN T/O SHIFT. PT HAS BEEN ON 13L OF OXYGEN VIA HFNC OVER THE LAST HOUR, SpO2 BETWEEN 88-95%, GOOD SPO2 WAVE-FORM NOTED AT THIS TIME .JERRI HUBBARD AWARE, WAITING ON ABG RESULTS. PT HAS SEVERE ACROCYANOSIS, CLUBBED FINGER NAILS NOTED. PT'S RR HAS REMAINED BETWEEN 13-20. CHEST TUBE TO WALL SUCTION, VERY MINIMAL SEROUS FLUID OUTPUT NOTED, NO AIR-LEAK, NO CREPITUS. BLOOD PRESSURES HAVE BEEN STABLE, MAP HAS REMAINED ABOVE 65. PT HAS BEEN IN SR WITH HR BETWEEN 80-90'S. ORAL CARE PROVIDED Q2HR, REMAINS NPO. HUNT PATENT, DRAINING TO GRAVITY, 600ML NOTED. SACRAL DRESSINGS CHANGED. PT TURNED Q2HRS.
[2022-03-13 05:15] LABS: PCO2 Arterial 35.7 mmHg (35-45); PO2 Arterial 50.9 mmHg (80-100); pH Blood Arterial 7.42 (7.35-7.45)
--- NOTE | 2022-03-13 05:33 | NUR ---
UPDATE; ABG CAME BACK p02 50.9, PT PLACED ON AIRVO, SETTINGS AT 30L, FiO2 90% spO2 94%
--- NOTE | 2022-03-13 07:30 | NUR ---
Received report from Noc RN. Patient awake and able to communicate needs. Her speech is soft and understandable. She is on AirVo 75% 30L and sats 90%. She asks for water and have been cleaning and moisturizing mouth until speech eval has communicated plan. She has chest tube to right chest and is on low continuous suction, dressing C,D.I and sealed no leak. She has LIJ, dressing intact and is infusing NS TKO. She moves UE and minimal LE. She has 16Fr Lopez draing reyna urine to gravity small amounts. She has bilateral heel dressing, small left toe dressing and sacral dressing, see pics. Bear hugger in place as patient states being cold. Repositioned in bed.
--- NOTE | 2022-03-13 10:06 | NUR ---
Patient remains awake and able to communicate her needs in soft spoken voice. removed bear hugger as she states is warm enough. 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 PleueraVacx remains on suction and no leak seen. AM meds given and held PO meds as she failed her swallow eval and notified Dr Cade. AirVo remains at 75% 30L and sats 86-92%. Gave lemon swabs and used green swabs to moisturize mouth. Scant urine output. Dr Cade has spoke to family, daughter to be here and sister her possibly today.
[2022-03-13 10:24] LABS: Vancomycin, Trough 20.2 ug/mL (5.0-10.0)
--- NOTE | 2022-03-13 12:06 | NUR ---
Patient continues to be awake and able to communicate her needs She remains on same Airvo settings and sats 94%. She continues with green swabs for moisturizing and lemon swabs. Denies any need for current pain intervention. No changes to pleuravac and or matamoros.
--- NOTE | 2022-03-13 14:00 | NUR ---
No significant changes with patient. She remains same settings on airvo with sats low 90%. Repositioned, chlorhexadine bath and linen change and she tolerated well. No neuro changes. dr Cade talked with daughter and will be here .
--- NOTE | 2022-03-13 16:00 | NUR ---
Patients sister here visiting and she came out and stated patients feet were hurting and medicated per MAR for pain. She remains on AirVo 75% 30L and sats currently 97%. She remains soft spoken and stating needs when rounding. She has had about 400 ml of light reyna urine out. She does minimal assisting with care and repositioning r/t deconditioning.
--- NOTE | 2022-03-13 18:00 | NUR ---
Patient resting. She awakens easily to verbal stimuli and has soft speech and communicates her needs. She remains on Airvo 75% 30L and sats 88-93% !6 fr temp matamoros draining to gravity and had 400 ml light reyna urine out. Pleura vac remains on suction and has almost nothing this shift of serous fluid. Feet elevated and in TUSHAR boots and states intermitent pain in feet. Swab mouth for moisture or lemon swab. remains on iso for MRSA. ST will eval again tomorrow , but weak cough and aspirates on this liquids.
[2022-03-14 04:04] LABS: BASOPHILS ABSOLUTE AUTO 0.02 K/mm3 (0.00-0.23); BASOPHILS PERCENT AUTO 0 % (0-2); EOSINOPHILS PERCENT AUTO 0 % (0-6); Hematocrit 30.3 % (33.0-51.0); Hemoglobin 9.6 g/dL (11.5-16.0); IMMATURE GRAN ABSOLUTE AUTO 0.06 K/mm3 (0.00-0.10); IMMATURE GRAN PERCENT AUTO 1 % (0-1); LYMPHOCYTES ABSOLUTE AUTO 0.38 K/mm3 (0.84-5.20); LYMPHOCYTES PERCENT AUTO 3 % (21-46); MONOCYTES ABSOLUTE AUTO 0.77 K/mm3 (0.16-1.47); MONOCYTES PERCENT AUTO 6 % (4-13); Mean Corpuscular HGB 22.9 pg (26.0-34.0); Mean Corpuscular HGB Conc 31.7 g/dL (31.5-36.5); Mean Corpuscular Volume 72 fL (80-100); Mean Platelet Volume 9.4 fL (9.1-12.4); NEUTROPHILS ABSOLUTE AUTO 11.47 K/mm3 (1.96-9.15); NEUTROPHILS PERCENT AUTO 90 % (41-73); Platelet Count 256 K/mm3 (150-400); RDW Coefficient Variation 22.1 % (11.7-14.2); RDW Standard Deviation 55.3 fL (35.1-46.3)
[2022-03-14 05:38] LABS: Bun/Creatinine Ratio 95.5 (12.0-20.0); Calcium, Blood 7.4 mg/dL (8.5-10.1); Creatinine, Blood 0.69 mg/dL (0.40-1.00)
--- NOTE | 2022-03-14 06:24 | NUR ---
Shift summary: Neuro: A&O to self. Only able to follow simple commands, extremities are still really weak. Cardiac - SR with HR in the 90s, BP normotensive. Afebrile, Deuce thighs dependent edema, RUE 1-2+ edema Resp: Lung sounds - Diminished to Rt side. Clear/diminished on left side. Pt fluctuated on Airvo anywhere from 75%-100% and 40L. O2 sats varied anywhere from 83-100%. GI/: Pt remains NPO d/t swallow eval fail. Lopez draining to gravity with clear yellow urine. Total output was 350 ml. No BM overnight Chest tube drained 110ml of serous fluid over night. This morning pt had a blood glucose of 46 on AM labs. D50 given IV, recheck blood glucose every hour.
--- NOTE | 2022-03-14 08:00 | NUR ---
Received report from Yary SPRAGUE. Patient ie awake and sitting up in bed with HOB>30 degrees. She has soft voice and is able to communicate her needs, oriented to self but not place. She is on AirVo that increased to 85% 45L last night and current sats 88-93%. She has LIJ that is infusing NS TKO. She has chest tube to right chest on continuous suction with small amount of serous fluid. She has 16 Fr Temp Lopez draining to gravity with light reyna colored urine. She has dressings to sacral area and mepelex padding, bilateral heel dressing and left small toe dressing, see chart pics. Awaiting daughter arrival to discuss plan.
--- NOTE | 2022-03-14 10:00 | NUR ---
Patient remains with same AirVo setting and sats >90%. Dr Cade by in room and assessed patient, started on Clidimix at 50ml/hr. Daughter called and talked on phone to her. Small amount of serous fluid output for right chest tube.
--- NOTE | 2022-03-14 12:00 | NUR ---
Patient has been resting watching TV. No changes to AirVO. She received bath and linen change. She continues NPO and Clinimic continues at 50ml/hr. She denies current pain by knodding. John remains patent.
--- NOTE | 2022-03-14 14:20 | NUR ---
Patient noon cbg [address] Cade is starting D10 at 25 ml/hr, Clinimix continues and NS TKO. AirVo at 85% 45L and sats >90%. Lopez patent and drainig to gravity light reyna urine. Right chest tube remains to suction with small amount serous fluid. She remains oriented to self and with soft voice communicates her needs.
--- NOTE | 2022-03-14 16:00 | NUR ---
Patient resting in bed watching TV. No changes to AirVo and or gtt's. repositioned and boosted in bed. Gave lemon swab as requested. D10 started earlier at 25ml/hr and continues
--- NOTE | 2022-03-14 18:32 | NUR ---
No changes with patient, awaiting daughters arrival tonite to make decsions with patient. She remains oriented to self and communicates needs with soft voice or nodding. She is on AirVo 85% 45L and sats >90%. Right chest tube had 60 mlserous fluid out. CBG [address] Cade and increased D10 to 50 ml/hr. 16Fr matamoros draining to gravity had 800 ml light reyna urine out. LIJ infusing NS TKO, Clinimix 50 ml/hr, and D10 at 50 ml/hr. Bath has been done this shift with linen change and just boosted and repositioned.
--- NOTE | 2022-03-14 22:30 | NUR ---
DAUGHTER AT BEDSIDE AND ASKING QUESTIONS ABOUT POTENTIAL HOSPICE FOR PATIENT. PT RESTING IN BED EXCITED TO SEE DAUGHTER AND ASKING TO GET OUT OF BED.
[2022-03-15 04:01] LABS: BASOPHILS ABSOLUTE AUTO 0.02 K/mm3 (0.00-0.23); BASOPHILS PERCENT AUTO 0 % (0-2); EOSINOPHILS ABSOLUTE AUTO 0.01 K/mm3 (0.00-0.68); EOSINOPHILS PERCENT AUTO 0 % (0-6); Hematocrit 29.6 % (33.0-51.0); Hemoglobin 9.5 g/dL (11.5-16.0); IMMATURE GRAN ABSOLUTE AUTO 0.07 K/mm3 (0.00-0.10); IMMATURE GRAN PERCENT AUTO 1 % (0-1); LYMPHOCYTES ABSOLUTE AUTO 0.32 K/mm3 (0.84-5.20); LYMPHOCYTES PERCENT AUTO 3 % (21-46); MONOCYTES ABSOLUTE AUTO 0.53 K/mm3 (0.16-1.47); MONOCYTES PERCENT AUTO 5 % (4-13); Mean Corpuscular HGB 23.2 pg (26.0-34.0); Mean Corpuscular HGB Conc 32.1 g/dL (31.5-36.5); Mean Corpuscular Volume 72 fL (80-100); Mean Platelet Volume 9.5 fL (9.1-12.4); NEUTROPHILS ABSOLUTE AUTO 10.69 K/mm3 (1.96-9.15); NEUTROPHILS PERCENT AUTO 92 % (41-73); Platelet Count 204 K/mm3 (150-400); RDW Coefficient Variation 22.5 % (11.7-14.2); Red Blood Cell Count 4.09 M/mm3 (3.80-5.20); White Blood Cell Count 11.64 K/mm3 (4.00-11.30)
[2022-03-15 04:21] LABS: Bun/Creatinine Ratio 113.1 (12.0-20.0); Calcium, Blood 7.2 mg/dL (8.5-10.1); Creatinine, Blood 0.57 mg/dL (0.40-1.00); Potassium, Blood 3.7 mmol/L (3.5-5.5)
--- NOTE | 2022-03-15 06:14 | NUR ---
Shift summary: Neuro: A&O to self. Only able to follow simple commands, extremities are still really weak. Cardiac - SR with HR in the 90s, BP normotensive. Afebrile, Deuce thighs dependent edema, RUE 1+ edema Resp: Lung sounds - Diminished to Rt side. Clear/diminished on left side. Airvo on 40L 90%. O2 sats varied 88-96% GI/: Pt remains NPO d/t swallow eval fail x1. On clinimix and D10 drip. Blood glucose checks Q6 hours Lopez draining to gravity with clear yellow urine. Total output was 460 ml. No BM overnight Chest tube drained 420ml of serous fluid over night.
--- NOTE | 2022-03-15 08:00 | NUR ---
Assumed care of pt at 0700. Report received from Yary SPRAGUE. Pt A&O x 2. Answers questions, follows commands. Pleasant and cooperative with care. Hoarse and whispery voice. SpO2 90% or greater with AirVO 40 LPM and 90% FiO2. SR per monitor. BP stable. Daughter is at bedside.
--- NOTE | 2022-03-15 12:30 | NUR ---
Pt SpO2 sat dropped below 90%, while pt at rest, and did not recover. Chest tube site and device inspected; no disruptions present to system. No fluctuations, no crepitus, remains to -[address] Cade notified. Provider ordered BiPAP. Placed on BiPAP 10/5 and 100% FiO2. SpO2 82-86%. Per Dr Cade, this is an acceptable SpO2 for this patient. Pt's daughter has departed and will be returning with pt's sister to make decisions on goals of care.
--- NOTE | 2022-03-15 15:29 | NUR ---
Pt currently on bipap support for hypoxia. She remains above 90% 02 sats, but appears weak, nodding off frequently. Awaiting return pt pt's sister and daughter to discuss goals of care. Pt is currently unable to wean low enough on oxygen to leave the hospital. Unfortunately, this is not a sustainable solution. Pt remains pleasantly confused, with moments of clear thinking.
--- NOTE | 2022-03-15 16:01 | NUR ---
Pt's daughter has arrived and elected comfort care for pt, as she is obviously struggling on the bipap and her diagnosis is terminal. Received v/o for comfort care from Dr. Cade.
--- NOTE | 2022-03-15 16:29 | NUR ---
Pt's SpO2 recovered after approx 1.5 hours on BiPAP with 100%. Pt's daughter and sister returned. Described comfort care and said they would like this experience for the patient. Stated concern that pt would be struggling to breathe. Reinforced that treating air hunger is a priority with comfort measures. Discussed concern that patient is dependent on BiPAP, attempting to remove it, but is too weak to do so. Family stated they wanted to implement comfort measures right now. Pt given 10 mg roxanol while RT switching from BiPAP to high flow, heated nasal cannula. Pt given additional 10 mg roxanol for comfort. Currently comfortable in bed, interacting with family.
--- NOTE | 2022-03-15 18:30 | NUR ---
SUMMARY Comfort measures. Pt does not appear to have pain, anxiety, or air hunger. Resting comfortably with daughter and sister at bedside. Comfort cart in room.
--- NOTE | 2022-03-15 19:15 | NUR ---
ASSUMED CARE FOR PATIENT. PT RESTING IN BED COMFORTABLY ON ROOM AIR. DOES NOT APPEAR TO BE IN PAIN OR STRUGGLING. PT'S DAUGHTER AND SISTER ARE AT BEDSIDE EXPRESSING THAT THEY WANT THE PT TO STAY ASLEEP AND PASS COMFORTABLY.
--- NOTE | 2022-03-16 06:33 | NUR ---
Shift summary: Pt resting in bed and does not appear to be in distress. She is on room air. matamoros and chest tube still intact. SR with HR in the 70's. O2 sats remain 70-76%. Daughter and sister at bedside.
--- NOTE | 2022-03-16 07:34 | NUR ---
Assumed care of pt at 0700. Report received from Yary SPRAGUE. Pt is not responsive to verbal stimulus. Resting comfortably in bed. No signs of pain, anxiety, or respiratory distress.
--- NOTE | 2022-03-16 09:13 | NUR ---
Repositioned patient. Noticable grimace, tachypnea noted. Pt swallowing. Medicated pt for pain and anxiety.
--- NOTE | 2022-03-16 12:49 | NUR ---
Comfort Care Visit Pt resting in bed with her eyes closed. Pt is non responsive and appears comfortable at this time. No S/S of distress noted. Family at bedside. Offered supportive visit and therapeutic listening. Palliative Care will remain available
--- NOTE | 2022-03-16 16:25 | NUR ---
Pt at 1614 with family in the room. Pronounced with Luisa SPRAGUE.
== END 2022-03-16 16:14 | DRG 207 ==
LOC: ER 16:17 → ICUW 19:12
PROVIDERS: Family Medicine; Internal Medicine; Internal Medicine Critical Care Medicine; Student in an Organized Health Care Education/Training Program; ADMIT Student in an Organized Health Care Education/Training Program
PROC: 5A1955Z Respiratory Ventilation, Greater than 96 Consecutive Hours (ICD-10-PCS; 2022-03-04)
PROC: 0BH17EZ Insertion of Endotracheal Airway into Trachea, Via Natural or Artificial Opening (ICD-10-PCS; 2022-03-04)
PROC: 02HV33Z Insertion of Infusion Device into Superior Vena Cava, Percutaneous Approach (ICD-10-PCS; 2022-03-05)
PROC: 0W9930Z Drainage of Right Pleural Cavity with Drainage Device, Percutaneous Approach (ICD-10-PCS; 2022-03-06)
PROC: 3E033XZ Introduction of Vasopressor into Peripheral Vein, Percutaneous Approach (ICD-10-PCS; 2022-03-06)
PROC: 0BBF3ZX Excision of Right Lower Lung Lobe, Percutaneous Approach, Diagnostic (ICD-10-PCS; principal; 2022-03-09)
PROC: 30233N1 Transfusion of Nonautologous Red Blood Cells into Peripheral Vein, Percutaneous Approach (ICD-10-PCS; 2022-03-12)
PROC: 5A0945A Assistance with Respiratory Ventilation, 24-96 Consecutive Hours, High Flow/Velocity Cannula (ICD-10-PCS; 2022-03-13)
PROC: 5A09357 Assistance with Respiratory Ventilation, Less than 24 Consecutive Hours, Continuous Positive Airway Pressure (ICD-10-PCS; 2022-03-15)
DX: J15.212 Pneumonia due to Methicillin resistant Staphylococcus aureus (principal); E43 Unspecified severe protein-calorie malnutrition; I33.0 Acute and subacute infective endocarditis; J96.01 Acute respiratory failure with hypoxia; I21.3 ST elevation (STEMI) myocardial infarction of unspecified site; I50.23 Acute on chronic systolic (congestive) heart failure; C15.9 Malignant neoplasm of esophagus, unspecified; J94.8 Other specified pleural conditions; J98.19 Other pulmonary collapse; C25.9 Malignant neoplasm of pancreas, unspecified; R64 Cachexia; I13.0 Hypertensive heart and chronic kidney disease with heart failure and stage 1 through stage 4 chronic kidney disease, or unspecified chronic kidney disease; J91.8 Pleural effusion in other conditions classified elsewhere; Z68.1 Body mass index [BMI] 19.9 or less, adult; J44.0 Chronic obstructive pulmonary disease with (acute) lower respiratory infection; E87.0 Hyperosmolality and hypernatremia; J98.11 Atelectasis; C78.01 Secondary malignant neoplasm of right lung; Z51.5 Encounter for palliative care; Z66 Do not resuscitate; J15.4 Pneumonia due to other streptococci; R57.0 Cardiogenic shock; R91.8 Other nonspecific abnormal finding of lung field; S49.91XA Unspecified injury of right shoulder and upper arm, initial encounter; K74.60 Unspecified cirrhosis of liver; B19.20 Unspecified viral hepatitis C without hepatic coma; F10.10 Alcohol abuse, uncomplicated; R62.7 Adult failure to thrive; N18.30 Chronic kidney disease, stage 3 unspecified; R13.10 Dysphagia, unspecified; D50.9 Iron deficiency anemia, unspecified; E16.2 Hypoglycemia, unspecified; E87.6 Hypokalemia; M25.559 Pain in unspecified hip; M81.0 Age-related osteoporosis without current pathological fracture; M79.673 Pain in unspecified foot; M25.569 Pain in unspecified knee; G89.29 Other chronic pain; Z20.822 Contact with and (suspected) exposure to COVID-19; Z87.891 Personal history of nicotine dependence; Z98.890 Other specified postprocedural states; Z85.818 Personal history of malignant neoplasm of other sites of lip, oral cavity, and pharynx; Z79.2 Long term (current) use of antibiotics; Z79.891 Long term (current) use of opiate analgesic; Z79.899 Other long term (current) drug therapy; Z79.01 Long term (current) use of anticoagulants; X58.XXXA Exposure to other specified factors, initial encounter
CPT/HCPCS: 0241U; 31500; 31720; 32408; 36415; 36430; 36556; 36600; 51702; 71045; 71260; 77012; 80048; 80053; 80202; 81001; 82042; 82271; 82330; 82728; 82803; 82945; 82947; 83540; 83550; 83605; 83615; 83735; 83880; 83986; 84100; 84145; 84157; 84311; 84478; 84484; 85025; 85027; 85610; 85730; 86141; 86850; 86900; 86901; 86923; 87040; 87070; 87075; 87077; 87086; 87147; 87186; 87205; 87252; 87254; 88108; 88305; 88341; 88342; 89051; 92610; 92950; 93005; 93010; 94002; 94003; 94640; 94660; 94664; 94760; 94762; 96365-59; 96366-59; 96375-59; 99291-25; A9270; C1751; C8929; C9113; J0456; J0696; J1644; J1940; J2060; J2250; J2270; J2704; J3010; J3370; J3475; J3480; J7030; J7050; J7060; P9016; Q9957; Q9967